=== PATIENT | male | born 1960 | race Caucasian/White ===

== ENCOUNTER 2022-03-30 14:44 | Emergency (ER) | payer BC, MEDICAID ==
[~2022-03-30] VITALS: Ht 177.8 cm; Wt 81.6 kg
[2022-03-30 15:21] VITALS: BP_SYST 130
[2022-03-30] MEDS ORDERED: BENZONATATE 100 MG CAPSULE (TESSALON) PO SCH (18:15)
--- NOTE | 2022-03-30 18:38 | NUR ---
ER IN TRIAGE examining patient.
--- NOTE | 2022-03-30 18:40 | NUR ---
PATIENT BROUGHT IN COMPLAINING OF COUGH CONGESTION, BODY ACHES AND FEVER X 3 DAYS. BODY PAIN 4/10. VSS. NO ACUTE DISTRESS NOTED
--- NOTE | 2022-03-30 18:46 | NUR ---
MEDICATED PER MD ORDERS
[2022-03-30] MEDS: KETOROLAC TROMETHAMINE 60 MG/2 ML VIAL IM ONE (18:47)
[2022-03-30] MEDS: guaiFENesin/DEXTROMETHORPHAN 10 ML UDC PO ONE (18:48)
[2022-03-30] MEDS: BENZONATATE 100 MG CAPSULE (TESSALON) PO ONE (18:48)
[2022-03-30] MEDS ORDERED: NIRM1TAB PO (18:49)
[2022-03-30] MEDS ORDERED: BENZ100C92 PO (18:49)
[2022-03-30] MEDS ORDERED: IBUP-1971 PO (18:49)
[2022-03-30 18:57] VITALS: BP_SYST 122
--- NOTE | 2022-03-30 18:57 | NUR ---
Patient given written and verbal discharge instructions and verbalizes understanding. ER MD discussed with patient the results and treatment provided. Patient in stable condition. ID arm band removed. Rx of BENZONATE, MOTRIN, PAXLOVID given. Patient educated on pain management and to follow up with PMD. Pain Scale 0/10 Opportunity for questions provided and answered. Medication side effect fact sheet provided.
== END 2022-03-30 18:57 | disposition home or self-care (01) ==
LOC: SED 14:44
DX: U07.1 COVID-19 (principal); R50.9 Fever, unspecified; R05.9 Cough, unspecified; R09.81 Nasal congestion; Z79.899 Other long term (current) drug therapy
CPT/HCPCS: 99284; 71045; 87426; 36415; 96372; 87804 ×2; J1885

== ENCOUNTER 2023-01-25 06:44 | Day surgery (SDC) | payer MEDICAID ==
[~2023-01-25] VITALS: Ht 177.8 cm; Wt 83.9 kg
[~2023-01-25 06:44] MED LIST: BENZ100C92 PO; IBUP-1971 PO; NIRM1TAB PO
[2023-01-25] MEDS ORDERED: MEPERIDINE 100 MG INJ. 100 MG/ML VIAL ONE (07:09)
[2023-01-25] MEDS ORDERED: MIDAZOLAM HCL 5 MG/5 ML VIAL ONE (07:10)
[2023-01-25 08:26] VITALS: O2SAT 98
[2023-01-25 14:30] VITALS: BP_SYST 114; PULSE 58; RESP 17
== END 2023-01-25 10:30 | disposition home or self-care (01) ==
LOC: SDS 06:44 → SMU 06:45 → SDS 10:30
PROVIDERS: ATTEND Internal Medicine Gastroenterology
DX: R19.4 Change in bowel habit (principal); D12.3 Benign neoplasm of transverse colon; D12.2 Benign neoplasm of ascending colon; K29.50 Unspecified chronic gastritis without bleeding; K21.9 Gastro-esophageal reflux disease without esophagitis; R13.10 Dysphagia, unspecified; R19.34 Left lower quadrant abdominal rigidity; K44.9 Diaphragmatic hernia without obstruction or gangrene; K57.30 Diverticulosis of large intestine without perforation or abscess without bleeding; K64.8 Other hemorrhoids; J45.909 Unspecified asthma, uncomplicated; Z98.890 Other specified postprocedural states; Z79.899 Other long term (current) drug therapy
CPT/HCPCS: 45385; 43248; 43239; 87081; 36415; 88305; 88312; 88313; 99152; 99153; G0378; J2250; J2175; C1769